=== PATIENT | male | born 1980 | race Two or more races ===

== ENCOUNTER 2017-04-03 11:52 | Emergency (ER) | payer MEDICAID ==
[2017-04-03 12:01] VITALS: BP 118/77; PULSE 100; RESP 16; TEMP 97.7; O2SAT 96
--- NOTE | 2017-04-03 12:28 | EDPHY ---
H & P Time Seen by Provider: 04/03/17 12:16 HPI/ROS: CHIEF COMPLAINT: "I think I have scabies " HISTORY OF PRESENT ILLNESS: Patient is a 36-year-old male who presents to the emergency department stating he may have scabies. He scabies in the past this feels similar. He states that he normally sleeps in his truck. He noticed a rash on his hips and low back. It is pruritic. He has had no fevers or chills. No rash on his hands. No shortness of breath or chest pain. No other complaints. No exposure to new products. REVIEW OF SYSTEMS: My complete review of systems is negative except as mentioned in the HPI. Past Medical/Surgical History: Includes scabies Past surgical history: Noncontributory Social history: The patient is homeless Smoking Status: Former smoker Physical Exam: 36.5, 118/77, 100, 16, 96% on room air GENERAL: Well-appearing, in no acute distress, alert. HEENT: Eyes normal to inspection, normal pharynx, no signs of dehydration. NECK: [No thyromegaly, no lymphadenopathy, supple. RESPIRATORY: Clear to auscultation bilaterally, no rales, rhonchi or wheezing. CVS: Regular rate and rhythm, no rubs, murmurs, or gallops. ABDOMEN: Soft, nontender, nondistended, no organomegaly. BACK: Normal to inspection, no CVA tenderness. SKIN: Normal color, warm, dry. No pallor. Patient has a papular rash on both hips bilaterally. This does not extend into his abdomen or back. Patient has no rash on his hands or arms. No facial rash. Oropharynx normal. EXTREMITIES: No pedal edema, no calf tenderness, no Homans sign or cords, no joint swelling. NEURO/PSYCH: Alert and oriented x3, normal mood and affect, normal motor sensory exam. No obvious cranial nerve deficit. Constitutional: Initial Vital Signs Temperature (C) 36.5 C 04/03/17 11:57 Heart Rate 100 04/03/17 11:57 Respiratory Rate 16 04/03/17 11:57 Blood Pressure 118/77 04/03/17 11:57 O2 Sat (%) 96 04/03/17 11:57 O2 Delivery Mode Room Air Allergies/Adverse Reactions: amoxicillin Allergy (Verified 04/03/17 11:59) Pt reports hives Home Medications: Medication Instructions Recorded Permethrin 5% [Elimite 5%] 60 bernice TP ONCE #1 cream 04/03/17 Medical Decision Making ED Course/Re-evaluation: I discussed possible etiologies with the patient answered all his questions. This rash distribution was not particularly consistent with scabies. However, the patient was adamant about wanting a treatment with the cream to treat scabies. Because of this he was given a prescription for permethrin. Patient may have bedbug bites as well. I discussed this diagnosis with the patient. These are usually self-limiting. Differential Diagnosis: My differential includes but is not limited to scabies, bedbugs, allergic reaction, medication reaction, dermatitis, Ernie Magdiel syndrome,TEN Departure - Departure Disposition: Home, Routine, Self-Care Clinical Impression: Rash Condition: Good Instructions: Acute Rash (ED) Additional Instructions: Return with worsening rash or any other concerns. Referrals: [facility],. [Clinic] - 5-7 days, call for appt. Prescriptions: Permethrin 5% [Elimite 5%] 60 bernice TP ONCE #1 cream
== END 2017-04-03 12:38 | disposition home or self-care (01) ==
LOC: CED 11:52
DX: R21 Rash and other nonspecific skin eruption (principal); Z87.891 Personal history of nicotine dependence